=== PATIENT | female | born 1990 | race Caucasian/White ===

== ENCOUNTER 2017-08-20 15:17 | Observation (INO) | payer BC, MEDICAID ==
[~2017-08-20] VITALS: Ht 167.6 cm; Wt 110.0 kg
[~2017-08-20 15:17] MED LIST: OXYC-360 PO; PREN0.01 PO
[2017-08-20 15:20] VITALS: BP 147/86; PULSE 114; RESP 15; TEMP 98.5; O2SAT 98
[2017-08-20] MEDS ORDERED: PREN29TA PO (16:30)
[2017-08-20] MEDS ORDERED: SODIUM CHLOR 0.9% 1000 ML INJ 1,000 ML IV SCH (17:12)
[2017-08-20] MEDS ORDERED: ONDANSETRON HCL 4 MG/2 ML VIAL IV PUSH ONE (17:15)
[2017-08-20] MEDS ORDERED: SODIUM CHLORIDE 0.9% FLUSH 10 ML FLUSH IV FLUSH PRN ×2 (17:15→20:00)
--- NOTE | 2017-08-20 17:23 | PD ---
HPI Chief Complaint: GI Complaint Time Seen by Provider: 17:08 Travel History International Travel<30 days: No Contact w/Intl Traveler<30days: No Traveled to known affect area: No History of Present Illness HPI 27-year-old female who is currently 8 weeks with proven intrauterine of ultrasound Monday, presents emergency department with left lower quadrant tenderness which started yesterday has progressively gotten worse. Patient has had some mild nausea but denies fever, chills, vomiting, or diarrhea. Patient denies urinary symptoms. She denies vaginal discharge or bleeding. Patient states she had a similar episode in June which was diagnosed as diverticulitis by CT scan prior to being . She states similar symptoms at that time. She has no known drug allergies. [facility] Past Medical History Diverticulitis: Yes ?: LMP: 06/22/17 Social History Alcohol Use: No Tobacco Use: No Substance Use: No Allergies-Medications (Allergen,Severity, Reaction): Coded Allergies: No Known Allergies (Verified Adverse Reaction, Unknown, 08/20/17) Reported Meds & Prescriptions Reported Meds & Active Scripts Active Reported Plus Iron 29-1 mg ( Vit-Iron Carbonyl) 29 Mg Iron-1 Mg Tab 1 Tab PO DAILY Review of Systems Except as stated in HPI: all other systems reviewed are Neg General / Constitutional: No: Fever Eyes: No: Visual changes HENT: No: Headaches Cardiovascular: No: Chest Pain or Discomfort Respiratory: No: Shortness of Breath Gastrointestinal: Positive: Nausea, Abdominal Pain, Loss of Appetite, No: Vomiting, Diarrhea Genitourinary: No: Urgency, Frequency, Dysuria, Discharge, Vaginal Bleeding Musculoskeletal: No: Pain Skin: No Rash Neurologic: No: Weakness Psychiatric: No: Depression Endocrine: No: Polydipsia Hematologic/Lymphatic: No: Easy Bruising Physical Exam Narrative GENERAL: Patient appears in mild to moderate distress per SKIN: Warm and dry. Normal color. Normal turgor. No rash. HEAD: Atraumatic. Normocephalic. EYES: Pupils equal and round. No scleral icterus. No injection or drainage. ENT: No nasal bleeding or discharge. Mucous membranes pink and moist. Pharynx is clear. Airways patent NECK: Trachea midline. Supple and nontender. CARDIOVASCULAR: Regular rate and rhythm. RESPIRATORY: No accessory muscle use. Clear to auscultation. Breath sounds equal bilaterally. GASTROINTESTINAL: Abdomen soft, patient has mild to moderate tenderness in the left lower quadrant which is localized, nondistended. Bowel sounds are somewhat diminished in all quadrants. No CVA tenderness. Patient has mild peritoneal signs. Hepatic and splenic margins not palpable. MUSCULOSKELETAL: Extremities without clubbing, cyanosis, or edema. No obvious deformities. NEUROLOGICAL: Awake and alert. No obvious cranial nerve deficits. Motor grossly within normal limits. Five out of 5 muscle strength in the arms and legs. Normal speech. PSYCHIATRIC: Appropriate mood and affect; insight and judgment normal. Data Data Last Documented VS Vital Signs Date Time Temp Pulse Resp B/P (MAP) Pulse Ox O2 Delivery O2 Flow Rate FiO2 08/20/17 18:00 16 08/20/17 18:00 99 Room Air 08/20/17 15:20 98.5 114 Orders Orders Beta Hcg (Quant/Titer) (08/20/17 17:12) Complete Blood Count With Diff (08/20/17 17:12) Comprehensive Metabolic Panel (08/20/17 17:12) Lipase (08/20/17 17:12) Lactic Acid (08/20/17 17:12) Prothrombin Time / Inr (Pt) (08/20/17 17:12) Act Partial Throm Time (Ptt) (08/20/17 17:12) Urinalysis - C+S If Indicated (08/20/17 17:12) Iv Access Insert/Monitor (08/20/17 17:12) Ecg Monitoring (08/20/17 17:12) Oximetry (08/20/17 17:12) Sodium Chlor 0.9% 1000 Ml Inj (Ns 1000 M (08/20/17 17:12) Sodium Chloride 0.9% Flush (Ns Flush) (08/20/17 17:15) Ondansetron Inj (Zofran Inj) (08/20/17 17:15) Ampicillin-Sulbactam Inj (Unasyn Inj) (08/20/17 19:15) Admit Order (Ed Use Only) (08/20/17 19:32) Labs Laboratory Tests Test 08/20/17 17:25 08/20/17 17:29 Urine Color YELLOW Urine Turbidity HAZY Urine pH 6.5 Urine Specific [place] 1.024 Urine Protein TRACE mg/dL Urine Glucose (UA) NEG mg/dL Urine Ketones 10 mg/dL Urine Occult Blood NEG Urine Nitrite NEG Urine Bilirubin NEG Urine Urobilinogen LESS THAN 2.0 MG/DL Urine Leukocyte Esterase NEG Urine RBC 1 /hpf Urine WBC LESS THAN 1 /hpf Urine Squamous Epithelial Cells 3 /hpf Urine Mucus MOD /lpf Microscopic Urinalysis Comment CULT NOT INDICATED White Blood Count 17.3 TH/MM3 Red Blood Count 4.79 MIL/MM3 Hemoglobin 14.0 GM/DL Hematocrit 40.6 % Mean Corpuscular Volume 84.6 FL Mean Corpuscular Hemoglobin 29.1 PG Mean Corpuscular Hemoglobin Concent 34.4 % Red Cell Distribution Width 13.3 % Platelet Count 323 TH/MM3 Mean Platelet Volume 8.3 FL Neutrophils (%) (Auto) 79.5 % Lymphocytes (%) (Auto) 14.5 % Monocytes (%) (Auto) 4.0 % Eosinophils (%) (Auto) 1.6 % Basophils (%) (Auto) 0.4 % Neutrophils # (Auto) 13.7 TH/MM3 Lymphocytes # (Auto) 2.5 TH/MM3 Monocytes # (Auto) 0.7 TH/MM3 Eosinophils # (Auto) 0.3 TH/MM3 Basophils # (Auto) 0.1 TH/MM3 CBC Comment DIFF FINAL Differential Comment Prothrombin Time 10.6 SEC Prothromb Time International Ratio 1.0 RATIO Activated Partial Thromboplast Time 31.8 SEC Blood Urea Nitrogen 8 MG/DL Creatinine 0.70 MG/DL Random Glucose 86 MG/DL Total Protein 8.0 GM/DL Albumin 3.8 GM/DL Calcium Level 8.9 MG/DL Alkaline Phosphatase 64 U/L Aspartate Amino Transf (AST/SGOT) 17 U/L Alanine Aminotransferase (ALT/SGPT) 23 U/L Total Bilirubin 0.4 MG/DL Sodium Level 137 MEQ/L Potassium Level 3.6 MEQ/L Chloride Level 103 MEQ/L Carbon Dioxide Level 25.3 MEQ/L Anion Gap 9 MEQ/L Estimat Glomerular Filtration Rate 99 ML/MIN Lactic Acid Level 1.1 mmol/L Lipase 71 U/L Human Chorionic Gonadotropin, Quant 08945 MIU/ML [facility] Medical Decision Making Medical Screen Exam Complete: Yes Emergency Medical Condition: Yes Medical Record Reviewed: Yes Differential Diagnosis UTI. Diverticulitis. Ovarian cyst. Narrative Course Patient is medically stable at time of exam. Labs ordered including CBC, CMP, lactic acid, lipase, urinalysis, serum hCG. IV access is obtained. Patient is given 1000 mL normal saline bolus as well as 4 mg Zofran IV. Ultrasound is not felt warranted based on recent ultrasound on Monday showing intrauterine . Patient is discussed with Dr. Quinones who agrees with the plan. CBC shows leukocytosis of 17.3 CBC shows leukocytosis of 17.3.CBC shows Leukocytosis of 17.3 Coags normal Chemistry normal. HCG 73547 U/A normal. Patient is discussed with Dr. Quinones who recommends admitting the patient for observation. Patient is given 3 g Unasyn IV. Calls placed to the hospitalist for admission. Diagnosis Primary Impression: Diverticulitis Additional Impression: with 8 completed weeks gestation Admitting Information Admitting Physician Requests: Observation Condition: Stable Toño Guillermo Aug 20, 2017 17:23
[2017-08-20 17:41] LABS: AUTOMATED NEUTROPHIL # 13.7 TH/MM3 (1.8-7.7); BASOPHIL # 0.1 TH/MM3 (0-0.2); BASOPHIL % 0.4 % (0.0-2.0); EOSINOPHIL # 0.3 TH/MM3 (0-0.4); EOSINOPHIL % 1.6 % (0.0-4.0); HEMATOCRIT 40.6 % (35.0-46.0); LYMPH % 14.5 % (9.0-44.0); LYMPHOCYTE # 2.5 TH/MM3 (1.0-4.8); MEAN CELL VOLUME 84.6 FL (80.0-100.0); MEAN CORPUSCULAR HEMOGLOBIN 29.1 PG (27.0-34.0); MEAN CORPUSCULAR HGB CONC 34.4 % (32.0-36.0); MEAN PLATELET VOLUME 8.3 FL (7.0-11.0); MONOCYTE # 0.7 TH/MM3 (0-0.9); NEUT % 79.5 % (16.0-70.0); PLATELET COUNT 323 TH/MM3 (150-450); RED BLOOD COUNT 4.79 MIL/MM3 (4.00-5.30); RED CELL DISTRIBUTION WIDTH 13.3 % (11.6-17.2); WHITE BLOOD COUNT 17.3 TH/MM3 (4.0-11.0)
[2017-08-20 17:44] LABS: BILIRUBIN, URINE NEG (NEG); BLOOD, URINE NEG (NEG); GLUCOSE,URINE NEG (NEG); KETONE, URINE 10 mg/dL (NEG); MUCUS URINE MOD /lpf (OCC); NITRITE,URINE NEG (NEG); PH, URINE 6.5 (5.0-8.5); SQUAMOUS EPITHELIAL CELL URINE 3 /hpf (0-5); URINE COLOR YELLOW (YELLW/STRAW); URINE LEUKOCYTE ESTERASE NEG (NEG)
[2017-08-20 17:51] LABS: PROTHROMBIN TIME - PATIENT 10.6 SEC (9.8-11.6)
[2017-08-20 18:00] VITALS: RESP 15; O2SAT 99
[2017-08-20 18:01] LABS: ALBUMIN 3.8 GM/DL (3.4-5.0); ALT (GPT) 23 U/L (10-53); AST (GOT) 17 U/L (15-37); BICARBONATE 25.3 MEQ/L (21.0-32.0); BLOOD UREA NITROGEN 8 MG/DL (7-18); CALCIUM 8.9 MG/DL (8.5-10.1); CHLORIDE 103 MEQ/L (98-107); GLOMERULAR FILTRATION RATE 99 ML/MIN (>89); GLUCOSE,RANDOM 86 MG/DL (74-106); SODIUM (NA) 137 MEQ/L (136-145)
[2017-08-20 18:17] LABS: ALKALINE PHOSPHATASE 64 U/L (45-117); TOTAL BILIRUBIN ADULT 0.4 MG/DL (0.2-1.0)
[2017-08-20] MEDS ORDERED: AMPICILLIN-SULBACTAM INJ 3 GM in SODIUM CHLORIDE 0.9% INJ 100 ML IV ONE (19:15)
[2017-08-20] MEDS ORDERED: NALOXONE HCL 0.4 MG/ML AMP IV PUSH PRN (20:00)
--- NOTE | 2017-08-20 20:13 | HHI.HP ---
HPI Service [facility] Primary Care Physician Unknown Admission Diagnosis DIVERTICULITIS Diagnoses: Travel History International Travel<30 Days: No Contact w/Intl Traveler <30 Da: No Traveled to Known Affected Are: No History of Present Illness 27-year-old with a past medical history significant for diverticulosis with recent diverticulitis flare at the end of June, currently 8 weeks , presents the emergency department for evaluation of severe left-sided abdominal and pelvic pain. The patient reports that the pain began last night and felt similar in nature to her previous diverticulitis flare. She denies any fever/chills. Endorses accompanying nausea. Denies vomiting and diarrhea. Last bowel movement was this morning however she endorses crampy abdominal pain with the urge to defecate. She denies any chest pain or shortness of breath. Denies vaginal bleeding. Review of Systems Except as stated in HPI: all other systems reviewed are Neg Past Family Social History Past Medical History Diverticulosis History of diverticulitis, last flare in June Past Surgical History 2 Reported Medications Reported Meds & Active Scripts Active Reported Plus Iron 29-1 mg ( Vit-Iron Carbonyl) 29 Mg Iron-1 Mg Tab 1 Tab PO DAILY Allergies: Coded Allergies: No Known Allergies (Verified Allergy, Unknown, 08/20/17) Family History Father with diabetes mellitus Social History Denies alcohol, tobacco and illicit drugs Physical Exam Vital Signs Vital Signs Date Time Temp Pulse Resp B/P (MAP) Pulse Ox O2 Delivery O2 Flow Rate FiO2 08/20/17 18:00 16 08/20/17 18:00 15 99 Room Air 08/20/17 15:20 98.5 114 15 147/86 (106) 98 Physical Exam GENERAL: This is a well-nourished, well-developed patient, in no apparent distress. SKIN: No rashes, ecchymoses or lesions. Cool and dry. HEAD: Atraumatic. Normocephalic. No temporal or scalp tenderness. EYES: Pupils equal round and reactive. Extraocular motions intact. No scleral icterus. No injection or drainage. ENT: Nose without bleeding, purulent drainage or septal hematoma. Throat without erythema, tonsillar hypertrophy or exudate. Uvula midline. Airway patent. NECK: Trachea midline. No JVD or lymphadenopathy. Supple, nontender, no meningeal signs. CARDIOVASCULAR: Regular rate and rhythm without murmurs, gallops, or rubs. RESPIRATORY: Clear to auscultation. Breath sounds equal bilaterally. No wheezes , rales, or rhonchi. GASTROINTESTINAL: Abdomen soft, non-tender, nondistended. No hepato-splenomegaly , or palpable masses. Exquisitely tender to palpation in the left lower quadrant. No rebound tenderness. MUSCULOSKELETAL: Extremities without clubbing, cyanosis, or edema. No joint tenderness, effusion, or edema noted. No calf tenderness. NEUROLOGICAL: Awake and alert. Cranial nerves II through XII intact. Motor and sensory grossly within normal limits. Normal speech. Laboratory Laboratory Tests Test 08/20/17 17:25 08/20/17 17:29 Urine Color YELLOW Urine Turbidity HAZY Urine pH 6.5 Urine Specific [place] 1.024 Urine Protein TRACE Urine Glucose (UA) NEG Urine Ketones 10 Urine Occult Blood NEG Urine Nitrite NEG Urine Bilirubin NEG Urine Urobilinogen LESS THAN 2.0 Urine Leukocyte Esterase NEG Urine RBC 1 Urine WBC LESS THAN 1 Urine Squamous Epithelial Cells 3 Urine Mucus MOD Microscopic Urinalysis Comment CULT NOT INDICATED White Blood Count 17.3 Red Blood Count 4.79 Hemoglobin 14.0 Hematocrit 40.6 Mean Corpuscular Volume 84.6 Mean Corpuscular Hemoglobin 29.1 Mean Corpuscular Hemoglobin Concent 34.4 Red Cell Distribution Width 13.3 Platelet Count 323 Mean Platelet Volume 8.3 Neutrophils (%) (Auto) 79.5 Lymphocytes (%) (Auto) 14.5 Monocytes (%) (Auto) 4.0 Eosinophils (%) (Auto) 1.6 Basophils (%) (Auto) 0.4 Neutrophils # (Auto) 13.7 Lymphocytes # (Auto) 2.5 Monocytes # (Auto) 0.7 Eosinophils # (Auto) 0.3 Basophils # (Auto) 0.1 CBC Comment DIFF FINAL Differential Comment Prothrombin Time 10.6 Prothromb Time International Ratio 1.0 Activated Partial Thromboplast Time 31.8 Blood Urea Nitrogen 8 Creatinine 0.70 Random Glucose 86 Total Protein 8.0 Albumin 3.8 Calcium Level 8.9 Alkaline Phosphatase 64 Aspartate Amino Transf (AST/SGOT) 17 Alanine Aminotransferase (ALT/SGPT) 23 Total Bilirubin 0.4 Sodium Level 137 Potassium Level 3.6 Chloride Level 103 Carbon Dioxide Level 25.3 Anion Gap 9 Estimat Glomerular Filtration Rate 99 Lactic Acid Level 1.1 Lipase 71 Human Chorionic Gonadotropin, Quant [id number] Result Diagram: 08/20/17172808/20/171728 Pacorini VTE Risk Assessment Caprini VTE Risk Assessment: No/Low Risk (score <= 1) Caprini Risk Assessment Model Point Value = 1 Point Value = 2 Point Value = 3 Point Value = 5 Age 41-60 Minor surgery BMI > 25 kg/m2 Swollen legs Varicose veins or History of unexplained or recurrent spontaneous Oral contraceptives or hormone replacement Sepsis (< 1 month) Serious lung disease, including pneumonia (< 1 month) Abnormal pulmonary function Acute myocardial infarction Congestive heart failure (< 1 month) History of inflammatory bowel disease Medical patient at bed rest Age 61-74 Arthroscopic surgery Major open surgery (> 45 min) Laparoscopic surgery (> 45 min) Malignancy Confined to bed (> 72 hours) Immobilizing plaster cast Central venous access Age >= 75 History of VTE Family history of VTE Factor V Leiden Prothrombin [id number] Lupus anticoagulant Anticardiolipin antibodies Elevated serum homocysteine Heparin-induced thrombocytopenia Other congenital or acquired thrombophilia Stroke (< 1 month) Elective arthroplasty Hip, pelvis, or leg fracture Acute spinal cord injury (< 1 month) Prophylaxis Regimen Total Risk Factor Score Risk Level Prophylaxis Regimen 0-1 Low Early ambulation 2 Moderate Order ONE of the following: *Sequential Compression Device (SCD) *Heparin 5000 units SQ BID 3-4 Higher Order ONE of the following medications: *Heparin 5000 units SQ TID *Enoxaparin/Lovenox 40 mg SQ daily (WT < 150 kg, CrCl > 30 mL/min) *Enoxaparin/Lovenox 30 mg SQ daily (WT < 150 kg, CrCl > 10-29 mL/min) *Enoxaparin/Lovenox 30 mg SQ BID (WT < 150 kg, CrCl > 30 mL/min) AND/OR *Sequential Compression Device (SCD) 5 or more Highest Order ONE of the following medications: *Heparin 5000 units SQ TID (Preferred with Epidurals) *Enoxaparin/Lovenox 40 mg SQ daily (WT < 150 kg, CrCl > 30 mL/min) *Enoxaparin/Lovenox 30 mg SQ daily (WT < 150 kg, CrCl > 10-29 mL/min) *Enoxaparin/Lovenox 30 mg SQ BID (WT < 150 kg, CrCl > 30 mL/min) AND *Sequential Compression Device (SCD) Assessment and Plan Assessment and Plan Assessment/plan: 1. Diverticulitis Patient with leukocytosis and physical exam consistent with diverticulitis flare History of diverticulosis with frequent flares Zosyn Nothing by mouth IV fluids 2. Intrauterine Patient at 8 weeks gestation by first trimester ultrasound OB consulted, appreciate recommendations FEN NPO Electrolytes: Monitor and replete prn NS at 100 cc/hr Elmira Ray MD Aug 20, 2017 20:13
[2017-08-20 20:38] VITALS: BP 122/72; PULSE 98; RESP 24; TEMP 99.6; O2SAT 99
[2017-08-20] MEDS ORDERED: ONDANSETRON HCL 4 MG/2 ML VIAL IVP PRN (21:00)
[2017-08-20 21:23] VITALS: PULSE 106
[2017-08-20] MEDS: SODIUM CHLORIDE 0.9% FLUSH 10 ML FLUSH IV FLUSH SCH (22:25)
[2017-08-20] MEDS: SODIUM CHLOR 0.9% 1000 ML INJ 1,000 ML IV SCH (22:25)
[2017-08-20 23:10] VITALS: PULSE 107
[2017-08-20] MEDS ORDERED: ACETAMINOPHEN 325 MG TAB PO PRN (23:15)
[2017-08-20 23:32] VITALS: BP 117/58; PULSE 88; TEMP 98.5; O2SAT 100
[2017-08-21] MEDS: PIPERACIL-TAZO 3.375 GM PREMIX 50 ML IV SCH ×3 (02:53→15:35)
[2017-08-21 04:05] LABS: AUTOMATED NEUTROPHIL # 9.9 TH/MM3 (1.8-7.7); BASOPHIL # 0.1 TH/MM3 (0-0.2); BASOPHIL % 0.9 % (0.0-2.0); EOSINOPHIL # 0.3 TH/MM3 (0-0.4); EOSINOPHIL % 2.3 % (0.0-4.0); HEMATOCRIT 34.6 % (35.0-46.0); HEMOGLOBIN 11.6 GM/DL (11.6-15.3); LYMPH % 19.7 % (9.0-44.0); LYMPHOCYTE # 2.8 TH/MM3 (1.0-4.8); MEAN CELL VOLUME 84.6 FL (80.0-100.0); MEAN CORPUSCULAR HEMOGLOBIN 28.3 PG (27.0-34.0); MEAN CORPUSCULAR HGB CONC 33.4 % (32.0-36.0); MEAN PLATELET VOLUME 8.3 FL (7.0-11.0); MONO % 6.1 % (0.0-8.0); MONOCYTE # 0.9 TH/MM3 (0-0.9); PLATELET COUNT 273 TH/MM3 (150-450); RED BLOOD COUNT 4.09 MIL/MM3 (4.00-5.30); RED CELL DISTRIBUTION WIDTH 13.3 % (11.6-17.2); WHITE BLOOD COUNT 13.9 TH/MM3 (4.0-11.0)
[2017-08-21 04:29] VITALS: BP 104/56; PULSE 90; RESP 20; TEMP 97.7; O2SAT 97
[2017-08-21 04:44] LABS: ALBUMIN 2.5 GM/DL (3.4-5.0); BICARBONATE 21.2 MEQ/L (21.0-32.0); CALCIUM 7.4 MG/DL (8.5-10.1); CALCIUM-PROTEIN CORRECTED 8.1 MG/DL (8.5-10.1); CREATININE 0.52 MG/DL (0.50-1.00); TOTAL BILIRUBIN ADULT 0.7 MG/DL (0.2-1.0); TOTAL PROTEIN 5.8 GM/DL (6.4-8.2)
[2017-08-21 04:56] VITALS: PULSE 97
[2017-08-21] MEDS: SODIUM CHLOR 0.9% 1000 ML INJ 1,000 ML IV SCH (06:00)
[2017-08-21 08:14] VITALS: BP 110/53; PULSE 82; RESP 18; TEMP 98.3; O2SAT 96
[2017-08-21] MEDS: SODIUM CHLORIDE 0.9% FLUSH 10 ML FLUSH IV FLUSH SCH (08:55)
[2017-08-21] MEDS ORDERED: MULTIVIT/MIN/PREN/FOL AC/IRON PRENATAL TAB PO SCH (09:00)
[2017-08-21 12:28] VITALS: BP 116/63; PULSE 89; RESP 18; TEMP 99.5; O2SAT 98
--- NOTE | 2017-08-21 13:24 | HHI.PR ---
Subjective Remarks Patient says she is feeling a little better today. Pain is improving. Denies any nausea or vomiting. Objective Vital Signs Date Time Temp Pulse Resp B/P (MAP) Pulse Ox O2 Delivery O2 Flow Rate FiO2 08/21/17 12:28 99.5 89 18 116/63 (80) 98 08/21/17 08:14 98.3 82 18 110/53 (72) 96 08/21/17 04:56 97 08/21/17 04:29 97.7 90 20 104/56 (72) 97 08/21/17 01:10 20 08/20/17 23:32 98.5 88 117/58 (77) 100 08/20/17 23:10 107 08/20/17 21:23 106 08/20/17 20:38 99.6 98 24 122/72 (89) 99 08/20/17 20:20 08/20/17 18:00 16 08/20/17 18:00 15 99 Room Air 08/20/17 15:20 98.5 114 15 147/86 (106) 98 I/O 08/20/17 08/20/17 08/20/17 08/21/17 08/21/17 08/21/17 07:00 15:00 23:00 07:00 15:00 23:00 Intake Total 1000 ml 400 ml Balance 1000 ml 400 ml Intake IV Total 1000 ml 400 ml # Voids 2 Result Diagram: 08/21/17 0345 08/21/17 034 Objective Remarks GENERAL: sitting up in bed, appears comfortable, aao x3 SKIN: Warm and dry. HEAD: Normocephalic. EYES: No scleral icterus. No injection or drainage. NECK: Supple, trachea midline. No JVD. CARDIOVASCULAR: Regular rate and rhythm without murmurs, gallops, or rubs. RESPIRATORY: Breath sounds equal bilaterally. No accessory muscle use. GASTROINTESTINAL: Abdomen soft, nondistended. Mild tenderness to moderate palpation in left lower quadrant. MUSCULOSKELETAL: No cyanosis, or edema. BACK: Nontender without obvious deformity. No CVA tenderness. A/P Assessment and Plan // Diverticulitis Patient with leukocytosis and physical exam consistent with diverticulitis flare History of diverticulosis with frequent flares Zosyn Nothing by mouth IV fluids = White count improving 13.9 today. Will obtain outside records from previous hospitalization. The IV Zosyn. Patient reports possible perforation in the past. The possibility of Crohn's in this young patient with recurrent distal colitis, will consult GI.. // Intrauterine Patient at 8 weeks gestation by first trimester ultrasound OB consulted, appreciate recommendations FEN NPO Electrolytes: Monitor and replete prn NS at 100 cc/hr Discharge Planning Likely discharge tomorrow if continued improvement. John Carlton MD Aug 21, 2017 13:24
--- NOTE | 2017-08-21 14:17 | PD.CONS ---
HPI History of Present Illness This is a 27 year old female with hx diverticulitis, is 8 wks , who presented with LLQ pain for the last 2 days. She admits constipation since she' s been taking prenatals. The pain is crampy in nature. Denies n/v, rectal bleeding, diarrhea. She admits diverticulitis, 3 prior episodes in last 4 years. She had a colonoscopy in [facility] 1 y ago with finding diverticulosis throughout colon. She feels the pain is improving since onset, is was eating when I entered the room. She had CT done 06/2017 for last episode showing diverticulitis with bowel wall thickening, per pt. (Rosina Keane) PFSH Past Medical History Diverticulosis History of diverticulitis, last flare in June Past Surgical History 2 (Rosina Keane) Coded Allergies: No Known Allergies (Verified Allergy, Unknown, 08/20/17) Family History Father with diabetes mellitus Social History Denies alcohol, tobacco and illicit drugs (Rosina Keane) Review of Systems Constitutional: DENIES: Fever Endocrine: DENIES: Polydipsia Eyes: DENIES: Blurred vision Ears, nose, mouth, throat: DENIES: Hearing loss Respiratory: DENIES: Cough Cardiovascular: DENIES: Chest pain Gastrointestinal: COMPLAINS OF: Abdominal pain, Constipation, DENIES: Bloody stools, Nausea, Vomiting Genitourinary: DENIES: Hematuria Musculoskeletal: DENIES: Joint Swelling Integumentary: DENIES: Pruritus Hematologic/lymphatic: DENIES: Bruising Neurologic: DENIES: Abnormal gait Psychiatric: DENIES: Confusion (Rosina Keane) GI Exam Vitals I&O Vital Signs Date Time Temp Pulse Resp B/P (MAP) Pulse Ox O2 Delivery O2 Flow Rate FiO2 08/21/17 12:28 99.5 89 18 116/63 (80) 98 08/21/17 08:14 98.3 82 18 110/53 (72) 96 08/21/17 04:56 97 08/21/17 04:29 97.7 90 20 104/56 (72) 97 08/21/17 01:10 20 08/20/17 23:32 98.5 88 117/58 (77) 100 08/20/17 23:10 107 08/20/17 21:23 106 08/20/17 20:38 99.6 98 24 122/72 (89) 99 08/20/17 20:20 08/20/17 18:00 16 08/20/17 18:00 15 99 Room Air 08/20/17 15:20 98.5 114 15 147/86 (106) 98 I/O 08/20/17 08/20/17 08/20/17 08/21/17 08/21/17 08/21/17 07:00 15:00 23:00 07:00 15:00 23:00 Intake Total 1000 ml 400 ml Balance 1000 ml 400 ml Intake IV Total 1000 ml 400 ml # Voids 2 Laboratory Test 08/20/17 17:25 08/20/17 17:29 08/21/17 03:45 Urine Color YELLOW Urine Turbidity HAZY Urine pH 6.5 Urine Specific [place] 1.024 Urine Protein TRACE mg/dL Urine Glucose (UA) NEG mg/dL Urine Ketones 10 mg/dL Urine Occult Blood NEG Urine Nitrite NEG Urine Bilirubin NEG Urine Urobilinogen LESS THAN 2.0 MG/DL Urine Leukocyte Esterase NEG Urine RBC 1 /hpf Urine WBC LESS THAN 1 /hpf Urine Squamous Epithelial Cells 3 /hpf Urine Mucus MOD /lpf Microscopic Urinalysis Comment CULT NOT INDICATED White Blood Count 17.3 TH/MM3 13.9 TH/MM3 Red Blood Count 4.79 MIL/MM3 4.09 MIL/MM3 Hemoglobin 14.0 GM/DL 11.6 GM/DL Hematocrit 40.6 % 34.6 % Mean Corpuscular Volume 84.6 FL 84.6 FL Mean Corpuscular Hemoglobin 29.1 PG 28.3 PG Mean Corpuscular Hemoglobin Concent 34.4 % 33.4 % Red Cell Distribution Width 13.3 % 13.3 % Platelet Count 323 TH/MM3 273 TH/MM3 Mean Platelet Volume 8.3 FL 8.3 FL Neutrophils (%) (Auto) 79.5 % 71.0 % Lymphocytes (%) (Auto) 14.5 % 19.7 % Monocytes (%) (Auto) 4.0 % 6.1 % Eosinophils (%) (Auto) 1.6 % 2.3 % Basophils (%) (Auto) 0.4 % 0.9 % Neutrophils # (Auto) 13.7 TH/MM3 9.9 TH/MM3 Lymphocytes # (Auto) 2.5 TH/MM3 2.8 TH/MM3 Monocytes # (Auto) 0.7 TH/MM3 0.9 TH/MM3 Eosinophils # (Auto) 0.3 TH/MM3 0.3 TH/MM3 Basophils # (Auto) 0.1 TH/MM3 0.1 TH/MM3 CBC Comment DIFF FINAL DIFF FINAL Differential Comment Prothrombin Time 10.6 SEC Prothromb Time International Ratio 1.0 RATIO Activated Partial Thromboplast Time 31.8 SEC Blood Urea Nitrogen 8 MG/DL 7 MG/DL Creatinine 0.70 MG/DL 0.52 MG/DL Random Glucose 86 MG/DL 75 MG/DL Total Protein 8.0 GM/DL 5.8 GM/DL Albumin 3.8 GM/DL 2.5 GM/DL Calcium Level 8.9 MG/DL 7.4 MG/DL Alkaline Phosphatase 64 U/L 46 U/L Aspartate Amino Transf (AST/SGOT) 17 U/L 21 U/L Alanine Aminotransferase (ALT/SGPT) 23 U/L 16 U/L Total Bilirubin 0.4 MG/DL 0.7 MG/DL Sodium Level 137 MEQ/L 142 MEQ/L Potassium Level 3.6 MEQ/L 3.5 MEQ/L Chloride Level 103 MEQ/L 112 MEQ/L Carbon Dioxide Level 25.3 MEQ/L 21.2 MEQ/L Anion Gap 9 MEQ/L 9 MEQ/L Estimat Glomerular Filtration Rate 99 ML/MIN 139 ML/MIN Lactic Acid Level 1.1 mmol/L Lipase 71 U/L Human Chorionic Gonadotropin, Quant 61615 MIU/ML Protein Corrected Calcium 8.1 MG/DL Physical Examination HEENT: PERRL; normocephalic; atraumatic; no jaundice. CHEST: CTA CARDIAC: RRR ABDOMEN: Soft, nondistended, LLQ; no hepatosplenomegaly; bowel sounds are present in all four quadrants. EXTREMITIES: No clubbing, cyanosis, or edema. SKIN: Normal; no rash; no jaundice. QUALITY NURSE: No focal deficits; alert and oriented times three. (Rosina Keane) Assessment and Plan Plan ASSESSMENT - LLQ pain, hx diverticulitis - 2 d hx LLQ pain. no bleeding, n/v. pain has improved somewhat today, pt tolerating soup and bread. she is 8wks , can't get CTscan. She says she had CT done 06/2017 that showed diverticulitis and bowel wall thickening in region iliac crest. Last colonoscopy in [facility] 1 year ago found diverticulosis throughout, no polyps. - leukocytosis - likely r/t above, wbc trending down, on zosyn PLAN - colonoscopy after delivery - continue zosyn - await OB eval - if d/c, po abx pt seen by myself and Dr Mason and this note is written on his behalf (Rosina Keane) Physician Comments Seen and examined with DIRECTOR OF [employer]UMNI RELATIONS, feeling better. No F/C, No bleeding. Similar episode in june treated with outpt. antibiotics. Previous colonoscopy showed diverticulosis but no colitis. States she has known about diverticulosis since she was 10 years old. Advised to check with Dr. Moya prior to taking any medicines while especially in the first trimester. Gi fu upon dc. No seeds, nuts , popcorn in diet. Gi will sign off, reconsult as needed. Thank you (Reggie Mason MD) Rosina Keane Aug 21, 2017 14:17 Reggie Mason MD Aug 21, 2017 16:22
[2017-08-21] MEDS ORDERED: AUGM875T3 PO (16:26)
[2017-08-21 16:43] VITALS: BP 116/58; PULSE 91; RESP 18; TEMP 98.5; O2SAT 99
== END 2017-08-21 18:02 | disposition home or self-care (01) ==
LOC: NEPD 15:17 → NEDA 19:34 → NEPFCDU 20:27
PROVIDERS: ADMIT Family Medicine; ATTEND Family Medicine
DX: O99.611 Diseases of the digestive system complicating pregnancy, first trimester (principal); K57.92 Diverticulitis of intestine, part unspecified, without perforation or abscess without bleeding; K52.9 Noninfective gastroenteritis and colitis, unspecified; Z3A.08 8 weeks gestation of pregnancy
CPT/HCPCS: 80053; 81001; 83605; 83690; 84702; 85025; 85610; 85730; 96361; 96365; 96366; 96375; 99285; G0378; J0295; J2405; J2543; J7030

== ENCOUNTER 2018-03-21 09:04 | Inpatient (IN) ==
[2018-03-21] MEDS ORDERED: Citric Acid/Sodium Citrate Liq 30 ML UDC PO SCH (10:15)
[2018-03-21 10:16] LABS: Baso # (Auto) 0.1 th/mm3 (0.0-0.2); Baso % (Auto) 0.6 % (0.0-2.0); Eos # (Auto) 0.3 th/mm3 (0.0-0.4); Eos % (Auto) 2.5 % (0.0-4.0); Hematocrit 36.3 % (35.0-46.0); Lymph # (Auto) 2.2 th/mm3 (1.0-4.8); Lymph % (Auto) 20.4 % (9.0-44.0); Mean Corpuscular Hemoglobin 27.5 pg (27.0-34.0); Mean Corpuscular Volume 83.5 fL (80.0-100.0); Mean Platelet Volume 9.6 fL (7.0-11.0); Mono # (Auto) 0.5 th/mm3 (0.0-0.9); Mono % (Auto) 4.3 % (0.0-8.0); Neut # (Auto) 7.7 th/mm3 (1.8-7.7); Neut % (Auto) 72.2 % (16.0-70.0); Platelet Count 255 th/mm3 (150-450); Red Blood Count 4.35 mil/mm3 (4.00-5.30); White Blood Count 10.7 th/mm3 (4.0-11.0)
[2018-03-21 10:26] LABS: Bacteria,Urine Rare /hpf; Bilirubin,Urine Negative (Negative); Clarity,Urine Hazy (Clear); Color,Urine Yellow (Yellw/Straw); Glucose,Urine (UA) Negative (Negative); Leukocyte Esterase,Urine Negative (Negative); Mucus,Urine Moderate /lpf (Occasional); Nitrite,Urine Negative (Negative); Specific Gravity,Urine 1.021 (1.002-1.035); Squamous Epithelial Cell,Urine 5 /hpf (0-5)
[2018-03-21 10:28] LABS: Amphetamine Urine With Conf Neg (Neg); Benzodiazepine Urine With Conf Neg (Neg)
[2018-03-21] MEDS ORDERED: Morphine Sulfate PF Inj 5 MG/10 ML Ampul ONE (10:31)
[2018-03-21 10:42] LABS: Albumin 2.9 g/dL (3.4-5.0); Anion Gap 13 meq/L (5-15); Aspartate Aminotransferase 16 U/L (15-37); Blood Urea Nitrogen 10 mg/dL (7-18); Calcium 8.8 mg/dL (8.5-10.1); Carbon Dioxide 20.1 meq/L (21.0-32.0); Chloride 106 meq/L (98-107); Glomerular Filtration Rate Greater Than 89 mL/min (>89); Glucose,Random 79 mg/dL (74-106); Potassium 3.9 meq/L (3.5-5.1); Sodium 139 meq/L (136-145)
[2018-03-21 10:43] LABS: Alanine Aminotransferase 14 U/L (10-53)
[2018-03-21 10:46] LABS: Alkaline Phosphatase 109 U/L (45-117); Total Protein 7.2 g/dL (6.4-8.2)
[2018-03-21] MEDS ORDERED: ceFAZolin 2 GM/NS 100 ML IV; Q8H IV.SIG ONE ×2 (11:00)
[2018-03-21] MEDS ORDERED: Acetaminophen 325 MG Tablet PO PRN (12:11)
[2018-03-21] MEDS ORDERED: Oxytocin 30 Units/500ml Premix 30 UNITS/500 ML BAG IV.SIG ONE (12:11)
[2018-03-21] MEDS ORDERED: ceFAZolin Inj 2,000 MG in Sodium Chlor 0.9% Inj 80 ML IV.SIG SCH (13:00)
[2018-03-21] MEDS ORDERED: Naloxone Inj 0.4 MG/ML Vial IV.PUSH PRN (14:38)
[2018-03-21] MEDS ORDERED: Oxytocin 30 Units/500ml Premix 30 UNITS/500 ML BAG IV.SIG PRN (17:11)
[2018-03-21] MEDS: ceFAZolin Inj 2,000 MG in Sodium Chlor 0.9% Inj 80 ML IV.SIG SCH (20:22)
[2018-03-22] MEDS: ceFAZolin Inj 2,000 MG in Sodium Chlor 0.9% Inj 80 ML IV.SIG SCH (04:11)
[2018-03-22 05:52] LABS: Baso % (Auto) 0.3 % (0.0-2.0); Eos # (Auto) 0.1 th/mm3 (0.0-0.4); Hemoglobin 10.3 gm/dL (11.6-15.3); Lymph # (Auto) 2.4 th/mm3 (1.0-4.8); Lymph % (Auto) 17.5 % (9.0-44.0); Mean Corpuscular HGB Conc 33.3 % (32.0-36.0); Mean Corpuscular Hemoglobin 27.9 pg (27.0-34.0); Mean Corpuscular Volume 83.7 fL (80.0-100.0); Mean Platelet Volume 9.4 fL (7.0-11.0); Mono # (Auto) 0.9 th/mm3 (0.0-0.9); Mono % (Auto) 6.4 % (0.0-8.0); Neut # (Auto) 10.3 th/mm3 (1.8-7.7); Neut % (Auto) 74.8 % (16.0-70.0); Platelet Count 210 th/mm3 (150-450); Red Cell Distribution Width 13.7 % (11.6-17.2); White Blood Count 13.8 th/mm3 (4.0-11.0)
[2018-03-22] MEDS ORDERED: Measles/Mumps/Rubella Vaccine Inj 0.5 ML Vial SQ ONE (16:00)
[2018-03-22] MEDS ORDERED: Diphtheria/Tetanus/Pertussis Vaccine Inj 0.5 ML Syringe IM ONE (16:00)
[2018-03-22] MEDS: Docusate Sodium 100 MG Capsule PO SCH (21:59)
[2018-03-23] MEDS: Simethicone 80 MG Chew Tablet PO PRN ×2 (09:03→15:52)
[2018-03-23] MEDS: Docusate Sodium 100 MG Capsule PO SCH ×2 (09:56→20:14)
[2018-03-24] MEDS: Simethicone 80 MG Chew Tablet PO PRN (06:04)
[2018-03-24] MEDS: Docusate Sodium 100 MG Capsule PO SCH (09:52)
== END 2018-03-24 13:47 | disposition home or self-care (01) ==
LOC: H2E 09:04 → H1EA 13:28
PROVIDERS: ADMIT Obstetrics & Gynecology; ATTEND Obstetrics & Gynecology